=== PATIENT | male | born 1985 | race Caucasian/White ===

== ENCOUNTER 2025-01-24 02:50 | Emergency (ER) | payer BC, SELFPAY ==
--- NOTE | ~2025-01-24 | CT_ITS ---
EXAMINATION: CT abdomen pelvis wo con DATE: 01/24/2025 03:53 INDICATION: Right flank pain. TECHNIQUE: Computed tomography (CT) of the abdomen and pelvis was performed without intravenous contrast. The dose-length product was 622.67 mGy-cm. COMPARISON: None. FINDINGS: Lung bases are clear. Liver spleen, adrenal glands, pancreas and gallbladder are unremarkable. There is a 4.1 cm left renal cyst. Mild right-sided hydronephrosis and mild right-sided hydroureter secondary to a 6 mm calcification in the distal right ureter about the right ureterovesicular junction. There is a 5 mm nonobstructing right renal stone. Abdominal aorta is not aneurysmal. No bladder calculi. Prostate gland is partially calcified. Moderate amount of stool. No CT evidence for colitis acute appendicitis. Mild multilevel degenerative change in the visualized spine. IMPRESSION: 1. Mild right-sided hydronephrosis and mild right-sided hydroureter secondary to a 6 mm calcification in the distal right ureter about the right ureter junction. 2. Small nonobstructing right renal stone. Reviewed, dictated and finalized at location Q. IMPRESSION: 1. Mild right-sided hydronephrosis and mild right-sided hydroureter secondary t o a 6 mm calcification in the distal right ureter about the right ureter juncti on. 2. Small nonobstructing right renal stone.
--- OUTSIDE RECORDS SUMMARY | 2025-01-24 02:52 | XMS_ITS | Clinical Summary ---
Author Organization [facility] Address [address] [place] [address] Care Team Providers Care Coiler Name Role Phone None, Provider MD Primary Care Provider Unavaila ble Allergies No known active allergies Medications azithromycin (ZITHROMAX) 250 MG tabletIndicatio ns:Sore throat Take 2 tablets by mouth on day one then 1 daily for four days. 6 tablet 08/04/2023 Active Active Problems No known active problems Social History Tobacco Use Types Packs/Day Years Used Date Smoking Tobacco: Never Smokeless Tobacco: Never Tobacco Cessation:Counseling Given: Not Answered Alcohol Use Standard Drinks/Week Comments Yes 6.7 (1 standard drink = 0.6 oz p ure alcohol) PHQ-2 Answer Date Recorded Patient Health Questionnaire-2 Score 0 08/04/2023 Sex and Gender Information Value Date Recorded Sex Assigned at Not on file Legal Sex Male 4:46 PM CDT Gender Identity Not on file Sexual Orientation Not on file Last Filed Vital Signs Vital Sign Reading Time Taken Comments Blood Pressure 126/82 08/04/2023 7:07 AM CIGAR MAKER Pulse 90 08/04/2023 7:07 AM CIGAR MAKER Temperature 36.6 C (97.9 F) 08/04/2023 7:07 AM CIGAR MAKER Respiratory Rate 16 08/04/2023 7:07 AM CIGAR MAKER Oxygen Saturation 98% 08/04/2023 7:07 AM CIGAR MAKER Inhaled Oxygen Concentration - - Weight 110.7 kg (244 lb) 08/04/2023 7:07 AM CIGAR MAKER Height 180.3 cm (5' 11) 08/04/2023 7:07 AM CIGAR MAKER Body Mass Index 34.03 08/04/2023 7:07 AM CIGAR MAKER Plan of Treatment Health Maintenance Due Date Last Done Comments Annual Physical 1989 Hepatitis C 2004 DTaP, Tdap and Td Vaccines ( 1 - Tdap) 2005 Hepatitis B Vaccines (1 of 3 - 19+ 3-dose series) 2005 HPV Vaccines (1 - 3-dose SCD M series) 2013 COVID-19 Vaccine (2023-2 5 season) 2024 PHQ-2 (Physician [place]) 06/02/2024 08/04/2023 Meningococcal B Vaccine Aged Out No l onger eligible based on patient's age to complete this topic Meningococcal Vaccine Aged Out No moe andrey eligible based on patient's age to complete this topic Pneumococcal Vaccine: Pediat rics (0 to 5 Years) and At-Risk Patients (6 to 49 Years) Aged Out No longer eligi ble based on patient's age to complete this topic RSV Immunizations Under 20 Months Aged Out No longer eligible based on patient's age to complete this topic Insurance Care Teams Coiler Relationship Specialty Start Date End Date None, Provider, MD PCP - General UNKNOWN PHYSICIAN SPECIALTY 08/04/23
[2025-01-24 02:54] VITALS: BP 152/106; PULSE 92; RESP 20; TEMP 36.8; O2SAT 100
[2025-01-24] MEDS: SODIUM CHLORIDE 0.9% IV 1,000 ML 999 ML IV CONT (03:16)
[2025-01-24] MEDS: KETOROLAC 15 MG/ML VIAL (*BKC) IV PUSH (03:16)
--- NOTE | 2025-01-24 03:17 | ED_ITS ---
HPI - Back Pain/Injury General Chief Complaint: Back Pain/Injury Stated Complaint: back pain Time Seen by Provider: 01/24/25 02:54 History of Present Illness HPI Narrative: Patient is a 39-year-old male who presents to the emergency department this evening complaining of right-sided flank pain radiating to his right lower quadrant. States that it pain started approximately 2 hours ago. States that he has urgency to urinate but feels as though he can not empty his bladder. Denies any history of kidney stones. Denies any dysuria or hematuria. No additional symptoms or concerns at this time. Related Data Allergies Allergy/AdvReac Type Severity Reaction Status Date / Time No Known Allergies Allergy Verified 10/11/24 11:13 Review of Systems 2 Review of Systems: All systems are reviewed and are negative unless stated otherwise in the HPI. ON LICENSE OF [facility] Family History Family History Grandparent Diabetes mellitus Grandparent Diabetes mellitus Social History Social History Smoking status: Never smoker Do You Feel Safe in your Home?: Yes Lack of Transportation: No Lack of Food: Never True Current Housing: I Have Housing Concerned About Future Housing: No Difficulty Paying Gas/Electric Bills: No Difficulty Paying for Meds: No Currently Unemployed: No Difficulty w/ Childcare or Family Care: No Living arrangements: with family Gender identity (if verbalized by the patient): Male Exam 2 Narrative: General: Alert, awake, afebrile, in no acute distress. HEENT: PERRL, no rhinorrhea, no post nasal drip, oropharynx clear. Neck: Trachea midline, no JVD, no lymphadenopathy. Cardiovascular: Regular rate and rhythm, no murmurs, rubs or gallops, no peripheral edema. Respiratory: Clear to auscultation bilaterally, no tachypnea, no wheezing, no rhonchi, no rubs, no respiratory distress. Abdomen: Soft, nontender, nondistended, no rebound, no guarding, no peritoneal signs. Musculoskeletal: No joint swelling or deformity, normal muscle tone. Skin: No rashes or petechia, no signs of infection. Psychiatric: Alert and oriented, normal behavior and judgment for situation. Neurological: Alert and oriented to person, place, and time. Follows all commands. No focal deficits, speech is clear and fluent. Course Vital Signs Vital signs: Vital Signs Temperature 98.2 F 01/24/25 02:54 Pulse Rate 92 01/24/25 02:54 Respiratory Rate 20 01/24/25 02:54 Blood Pressure 152/106 H 01/24/25 02:54 Pulse Oximetry 100 01/24/25 02:54 Oxygen Delivery Room Air 01/24/25 02:54 Temperature 98.2 F 01/24/25 02:54 Pulse Rate 92 01/24/25 02:54 Respiratory Rate 20 01/24/25 02:54 Blood Pressure 152/106 H 01/24/25 02:54 Pulse Oximetry 100 01/24/25 02:54 Oxygen Delivery Room Air 01/24/25 02:54 MDM - Back Pain/Injury MDM Narrative Medical decision making narrative: The patient was evaluated by myself in the emergency department. History is obtained from patient who is an independent historian and physical exam was performed. External medical records were reviewed at this time. IV was established and pertinent tests were ordered. Patient was administered 1 L IV fluid bolus with normal saline, 4 mg IV Zofran and an oral [place]. Laboratory results obtained revealing no acute process. Urinalysis revealed hematuria otherwise unremarkable. Imaging studies obtained included CT abdomen pelvis without IV contrast which was independently interpreted by me revealing 5 mm mildly obstructing distal right ureteral stone, which is pending final radiology interpretation. Differential diagnosis considerations include kidney stone, dehydration, UTI, pyelonephritis. Comorbidities impacting this visit include none. I have evaluated and discussed social determinants of health with the patient that could potentially impact subsequent diagnosis and treatment plans. On repeat assessment of the patient, reevaluation revealed that the patient is doing well and is in no acute distress. Patient symptoms have improved since he arrived to our emergency department. Repeat vital signs were all reviewed and noted to be stable. Differential diagnosis and treatment plan were discussed with the patient at bedside. Patient agrees with discussion and after shared medical decision making agrees with discharge. All questions were answered to the patient's satisfaction. Patient will follow up with Urologys in 3-5 days. Scripts for Flomax, ibuprofen, Zofran and [place] were sent to patient's pharmacy to take as prescribed to help pass his kidney stone. He was provided with a urine strainer. Patient was provided with strict return precautions and instructed to return to the emergency department if any new or worsening symptoms develop. The patient was discharged in stable condition. Lab Data 01/24/25 03:15 01/24/25 03:15 Labs: Lab Results 01/24/25 01/24/25 Range/Units 03:15 03:53 WBC 9.4 (4.5-10.0) K/mm3 RBC 4.77 (4.6-6.20) M/mm3 Hgb 14.5 (14.0-18.0) g/dL Hct 43.6 (42.0-52.0) % MCV 91.4 (80-100) fl MCH 30.4 (26-34) pg MCHC 33.3 (32-36) g/dl RDW 12.5 (11.5-14.5) % Plt Count 271 (150-375) k/mm3 MPV 9.0 (7.4-10.4) fl Immature Gran % (Auto) 0.3 (0-0.5) % Neut % (Auto) 47.3 (45.5-73.1) % Lymph % (Auto) 34.3 (18.3-44.2) % [place] % (Auto) 9.9 H (2.6-8.5) % Eos % (Auto) 7.7 H (0-4.4) % Baso % (Auto) 0.5 (0.2-1.2) % Lymph # (Auto) 3.23 H (0.9-3.2) K/mm3 [place] # (Auto) 0.9 H (0.1-0.6) K/mm3 Eos # (Auto) 0.7 H (0-0.3) K/mm3 Baso # (Auto) 0.1 (0.0-0.1) K/mm3 Abs Immat Gran (auto) 0.03 (0.00-0.031) K/mm3 Absolute Neuts (auto) 4.5 (1.3-6.7) K/mm3 Absolute Nucleated RBC 0.000 (0.0-0.012) K/mm3 Nucleated RBC % 0.0 (0.0-0.2) % Sodium 136 L (137-145) mmol/L Potassium 3.9 (3.4-5.0) mmol/L Chloride 101 (98-107) mmol/L Carbon Dioxide 29 (22-30) mmol/L Anion Gap 6 (4-12) mmol/L BUN 14 (9-20) mg/dL Creatinine 0.84 (0.7-1.3) mg/dL Estim Creat Clear Calc 131 ml/min Estimated GFR > 60 (59 - ) Glucose 149 H (65-110) mg/dL Calcium 9.4 (8.4-10.2) mg/dL Magnesium 2.2 (1.6-2.3) mg/dL Total Bilirubin 0.4 (0.2-1.3) mg/dL AST 35 (17-59) U/L ALT 26 (6-50) U/L Alkaline Phosphatase 73 (38-126) U/L Total Protein 7.4 (6.3-8.2) g/dL Albumin 4.6 (3.5-5.1) g/dL Lipase 51 (23-300) U/L Urine Color Yellow (Yellow) Urine Appearance Clear (Clear) Urine pH 5.5 (5.0-9.0) Ur Specific [place] 1.030 (1.001-1.035) Urine Protein Negative (Negative) mg/dL Urine Glucose (UA) Negative (Negative) mg/dL Urine Ketones Trace H (Negative) mg/dL Ur Blood (Man) 3+ H (Negative) Urine Nitrate Negative (Negative) Urine Bilirubin Negative (Negative) Urine Urobilinogen 0.2 (<2.0) mg/dL Leukocyte Esterase Rfl Negative (Negative) VIGNESH/UL Urine RBC 51-100 H (0-2) /hpf Urine WBC 0-5 (0-3) /hpf Ur Squamous Epith Cells None seen (Few) /hpf Urine Bacteria None seen /hpf Urine Casts 0-2 Discharge Plan Discharge Clinical Impression: Kidney stone, Right flank pain Patient Disposition: Home Condition: Improved Instructions: Antibiotic Form, Kidney Stones (ED) Additional Instructions: Please follow-up with the urologist your provided with within the next 3-5 days. Return to ED if any new or worsening symptoms develop. Take the medications your prescribed today as instructed to help passed 2 kidney stone. Patient Language: Afghan Prescriptions: New hydrocodone-acetaminophen 5-325 mg tablet 1 tablet PO Q8H PRN (Reason: pain) Qty: 10 0RF ondansetron 4 mg tablet,disintegrating 4 mg PO Q8H PRN (Reason: nausea and vomiting) Qty: 14 0RF tamsulosin [Flomax] 0.4 mg capsule 0.4 mg PO DAILY Qty: 14 0RF ibuprofen 400 mg tablet 400 mg PO TID PRN (Reason: pain) Qty: 20 0RF Follow-up/Referrals: Joe Pena MD [Physician, Urology] - 3 Days Nadir Spence MD [Primary Care Provider, Family Practice] Time of Disposition: 04:24
[2025-01-24 03:21] LABS: Hematocrit 43.6 % (42.0-52.0); Hemoglobin 14.5 g/dL (14.0-18.0); Immature Granulocyte Percent A 0.3 % (0-0.5); Lymphocytes Absolute Auto 3.23 K/mm3 (0.9-3.2); Mean Corpuscular HGB Conc 33.3 g/dl (32-36); Mean Corpuscular Hemoglobin 30.4 pg (26-34); Mean Corpuscular Volume 91.4 fl (80-100); Nucleated Red Blood Cells Absolute Auto 0.000 K/mm3 (0.0-0.012); Nucleated Red Blood Cells Perc 0.0 % (0.0-0.2); Platelet Count Result 271 k/mm3 (150-375); Red Blood Count 4.77 M/mm3 (4.6-6.20); White Blood Count 9.4 K/mm3 (4.5-10.0)
[2025-01-24 03:36] LABS: Alanine Aminotransferase 26 U/L (6-50); Albumin Level 4.6 g/dL (3.5-5.1); Alkaline Phosphatase 73 U/L (38-126); Anion Gap 6 mmol/L (4-12); Aspartate Amino Transferase 35 U/L (17-59); Bilirubin,Total 0.4 mg/dL (0.2-1.3); Blood Urea Nitrogen 14 mg/dL (9-20); Calcium 9.4 mg/dL (8.4-10.2); Carbon Dioxide 29 mmol/L (22-30); Chloride 101 mmol/L (98-107); Estimated CRCL calculation 131 ml/min; Estimated Glomerular Filt Rate > 60; Glucose 149 mg/dL (65-110); Lipase 51 U/L (23-300); Magnesium 2.2 mg/dL (1.6-2.3); Potassium 3.9 mmol/L (3.4-5.0); Sodium 136 mmol/L (137-145); Total Protein 7.4 g/dL (6.3-8.2)
[2025-01-24] MEDS: ONDANSETRON INJ 4 MG/2 ML VIAL IV PUSH (03:42)
[2025-01-24 04:05] LABS: Add Urine Microscopic? YES; Appearance Urine Clear (Clear); Glucose Urine UA Negative (Negative); Leukocyte Esterase Ur Negative LEU/UL (Negative); Nitrate Urine Negative (Negative); Non Pathogenic Casts 0-2; Specific Grav Ur 1.030 (1.001-1.035)
[2025-01-24] MEDS: HYDROcodone/acetaminophen (*CRX) 5-325 MG TABLET 1 TAB PO (04:28)
[2025-01-24] MEDS: TAMSULOSIN HCL 0.4 MG CAPSULE PO (04:28)
[2025-01-24 05:08] VITALS: BP 140/98; PULSE 86; RESP 18; O2SAT 99
== END 2025-01-24 04:35 | disposition home or self-care (01) ==
PROVIDERS: Emergency Provider Emergency Medicine; PCP Family Medicine
DX: N13.2 Hydronephrosis with renal and ureteral calculous obstruction (principal)
CPT/HCPCS: 36415; 74176; 80053; 81001; 83690; 83735; 85025; 96361; 96374; 96375; 99284; A9270; J1885; J2405; J7030

== ENCOUNTER 2025-01-27 06:57 | Outpatient (CLI) | payer BC, SELFPAY ==
--- NOTE | ~2025-01-27 | XR_ITS ---
XR abdomen/kub 1V 01/27/2025 07:26 Indication: Kidney stone Procedure: KUB Comparison: No prior studies for comparison. Findings: There is a punctate right renal stone. Bowel gas pattern nonobstructive with moderate colonic fecal loading. No stones identified in the expected course of ureters. No acute osseous abnormality. Impression: 1: Right nephrolithiasis. Reviewed, dictated and finalized at location O. Impression: 1: Right nephrolithiasis.
== END 2025-01-27 06:58 | disposition home or self-care (01) ==
LOC: MICIMG 06:58
PROVIDERS: PCP Family Medicine; Visit Provider Urology
DX: N20.0 Calculus of kidney (principal)
CPT/HCPCS: 74018

== ENCOUNTER 2025-01-27 10:23 | Day surgery (SDC) | payer BC, SELFPAY ==
[2025-01-27] VITALS (7 sets, daily range): BP systolic 115–157; BP diastolic 68–95; PULSE 72–89; RESP 16–20; TEMP 36.4–36.9; O2SAT 98–100
--- NOTE | ~2025-01-27 | XR_ITS ---
EXAMINATION: XR fluoroscopy no charge DATE: 01/27/2025 14:09 INDICATION: Nephrolithiasis with right ureteral stone TECHNIQUE: 2 fluoroscopic images of the abdomen and pelvis were obtained during procedure performed by Dr. Ludwig. Radiologist was not present for the imaging or procedure. The amount of fluoroscopy time used during this procedure was 0.3 minutes. Total DAP was 0.487 mGym^2. COMPARISON: None. FINDINGS: Image demonstrates a wire advanced into the right ureter. No correlate identified for the small stone previously seen at the right ureterovesicular junction. IMPRESSION: 1. Small stone previously seen at the right ureterovesicular junction is not visualized which could be due to small size or interval passage or extraction. See procedure note for further detail. Reviewed, dictated and finalized at location A. IMPRESSION: 1. Small stone previously seen at the right ureterovesicular junction is not vi sualized which could be due to small size or interval passage or extraction. Se e procedure note for further detail.
--- OUTSIDE RECORDS SUMMARY | 2025-01-27 10:28 | XMS_ITS | Clinical Summary ---
Author Organization [facility] Address [address] [address] Care Team Providers Care Board Liner Operator Name Role Phone Unknown, Notinfile Primary Care Provider Unavail able Allergies No known active allergies Medications No known medications Active Problems Problem Noted Date Diagnosed Date Adhesive capsulitis of left shoulder 06/09/2024 Surgical History Surgery Date Site/Laterality Comments FLUORO GUIDED INJECTION SHOULDER LEFT 06/10/2024 Lef t Social History Tobacco Use Types Packs/Day Years Used Date Smoking Tobacco: Never Passive Smoke Exposure: Never Smokeless Tobacco: Never Tobacco Cessation:Counseling Given: Not Answered Sex and Gender Information Value Date Recorded Sex Assigned at Not on file Legal Sex Male 12:59 PM READING INSTRUCTOR Gender Identity Not on file Sexual Orientation Not on file Obstetrics History Last Filed Vital Signs Vital Sign Reading Time Taken Comments Blood Pressure 133/98 06/10/2024 10:52 AM READING INSTRUCTOR Pulse 84 06/10/2024 10:52 AM READING INSTRUCTOR Temperature - - Respiratory Rate 20 06/10/2024 10:52 AM READING INSTRUCTOR Oxygen Saturation - - Inhaled Oxygen Concentration - - Weight 114.3 kg (252 lb) 06/09/2024 9:58 AM READING INSTRUCTOR Height 178.5 cm (5' 10.28) 06/09/2024 9:[address] Body Mass Index 35.87 06/09/2024 9:58 AM READING INSTRUCTOR Plan of Treatment Health Maintenance Due Date Last Done Comments Depression Screening 1986 Hepatitis C Screening 1986 DTaP/Tdap/Td Vaccine (1 - Tdap) 1997 Varicella Vaccines (1 of 2 - 13+ 2-dose series) 09/09/1999 Hepatitis B Screening 2004 Regular Well Visit/Exam 18-64 2004 HPV Vaccines (1 - 3-dose SCD M series) 2013 Influenza Vaccine (#1) 2025 03/23/2019 Pneumococcal vaccine <65 Aged Out No longer eligible based on patient's age to complete this topic [place] Care Teams Board Liner Operator Relationship Specialty Start Date End Date Unknown, Notinfile PCP - General 06/03/24
--- OUTSIDE RECORDS SUMMARY | 2025-01-27 10:28 | XMS_ITS | Clinical Summary ---
Author Organization [facility] Address [address] [place] [address] Care Team Providers Care Radiation Control Technician Name Role Phone None, Provider MD Primary [...] Comments Blood Pressure 126/82 08/04/2023 7:07 AM FORESTER AIDE Pulse 90 08/04/2023 7:07 AM FORESTER AIDE Temperature 36.6 C (97.9 F) 08/04/2023 7:07 AM FORESTER AIDE Respiratory Rate 16 08/04/2023 7:07 AM FORESTER AIDE Oxygen Saturation 98% 08/04/2023 7:07 AM FORESTER AIDE Inhaled Oxygen Concentration - - Weight 110.7 kg (244 lb) 08/04/2023 7:07 AM FORESTER AIDE Height 180.3 cm (5' 11) 08/04/2023 7:07 AM FORESTER AIDE Body Mass Index 34.03 08/04/2023 7:07 AM FORESTER AIDE Plan of Treatment Health Maintenance Due Date Last Done Comments Annual Physical 1989 Hepatitis C 2004 DTaP, Tdap and Td Vaccines ( 1 - Tdap) 2005 Hepatitis B Vaccines (1 of 3 - 19+ 3-dose series) 2005 HPV Vaccines (1 - 3-dose SCD M series) 2013 COVID-19 Vaccine (2023-2 5 season) 2024 PHQ-2 (Physician [place]) 06/02/2024 08/04/2023 Meningococcal B Vaccine Aged Out [...] to complete this topic Insurance Care Teams Radiation Control Technician Relationship Specialty Start Date End Date None, Provider, MD PCP - General UNKNOWN PHYSICIAN SPECIALTY 08/04/23
--- NOTE | 2025-01-27 11:20 | ED.GENADULT ---
HPI - General Adult General Chief complaint: Back Pain/Injury Stated complaint: R flank pain Time Seen by Provider: 01/27/25 10:53 History of Present Illness HPI narrative: 39-year-old male present to the emergency department for evaluation for worsening flank pain. Patient was diagnosed with a kidney stone last week and was scheduled to have outpatient follow-up with Dr. Ludwig. Patient had worsening symptoms today so he present to the emergency department for evaluation. Urology is where the patient and is anticipating on taking the patient to the or today. Patient reports he did have water at approximate 1045 and did have yogurt this morning at approximately 6:30 a.m.. Patient is currently now it p.o. Related Data Allergies Allergy/AdvReac Type Severity Reaction Status Date / Time No Known Allergies Allergy Verified 01/27/25 13:23 Review of Systems Review of Systems: All systems reviewed & are unremarkable except as noted in HPI and below PMFSH Family History Family History Grandparent Diabetes mellitus Grandparent Diabetes mellitus Social History Social History Smoking status: Never smoker Do You Feel Safe in your Home?: Yes Lack of Transportation: No Lack of Food: Never True Current Housing: I Have Housing Concerned About Future Housing: No Difficulty Paying Gas/Electric Bills: No Difficulty Paying for Meds: No Currently Unemployed: No Difficulty w/ Childcare or Family Care: No Living arrangements: with family Gender identity (if verbalized by the patient): Male Exam Narrative: APPEARANCE: Uncomfortable appearing HEAD: normocephalic, atraumatic. EYES: PERRLA/EOMI, conjunctivae clear. NOSE: Normal no drainage EARS:TMS clear with good light reflex. THROAT: Pharynx clear, no exudate. NECK: Supple. No adenopathy, no masses. RESPIRATORY: Airway patent, respirations nonlabored. Clear to auscultation bilaterally, no rales, rhonchi, wheezing. CARDIOVASCULAR: Regular rate and rhythm without murmurs rubs or gallops. ABDOMINAL: Soft, nontender, nondistended, normal bowel sounds MUSCULOSKELETAL: Moves all extremities. Strength/ROM intact, No edema, No calf tenderness. NEURO: Alert. Cranial nerves II through XII intact. Good gait. Good coordination SKIN: Warm, dry. Normal Color Course Vital Signs Vital signs: Vital Signs Temperature 97.5 F L 01/27/25 10:26 Pulse Rate 85 01/27/25 10:26 Respiratory Rate 16 01/27/25 10:26 Blood Pressure 157/89 H 01/27/25 10:26 Pulse Oximetry 100 01/27/25 10:26 Oxygen Delivery Room Air 01/27/25 10:26 Temperature 97.6 F 01/27/25 14:06 Pulse Rate 72 01/27/25 15:20 Respiratory Rate 16 01/27/25 15:20 Blood Pressure 125/79 01/27/25 15:20 Pulse Oximetry 100 01/27/25 14:35 Oxygen Delivery Room Air 01/27/25 15:20 Oxygen Flow Rate 4 01/27/25 14:20 Medical Decision Making MDM Narrative Medical decision making narrative: 39-year-old male present to the emergency department for evaluation for worsening flank pain. Urology and the OR is aware of the patient having worsening symptoms. Patient will be taken to the your today for dissipated stent placement. All questions concerns were addressed. Differential Diagnosis Differential Diagnosis: UTI, ureteral calculi Vital Signs Vital Signs: Vital Signs Temperature 97.5 F L 01/27/25 10:26 Pulse Rate 85 01/27/25 10:26 Respiratory Rate 16 01/27/25 10:26 Blood Pressure 157/89 H 01/27/25 10:26 Pulse Oximetry 100 01/27/25 10:26 Oxygen Delivery Room Air 01/27/25 10:26 Temperature 97.6 F 01/27/25 14:06 Pulse Rate 72 01/27/25 15:20 Respiratory Rate 16 01/27/25 15:20 Blood Pressure 125/79 01/27/25 15:20 Pulse Oximetry 100 01/27/25 14:35 Oxygen Delivery Room Air 01/27/25 15:20 Oxygen Flow Rate 4 01/27/25 14:20 Lab Data Lab results reviewed: Yes I reviewed the patient's lab results. Labs: Lab Results 01/27/25 Range/Units 12:13 Urine Color Yellow (Yellow) Urine Appearance Clear (Clear) Urine pH 5.5 (5.0-9.0) Ur Specific [place] 1.023 (1.001-1.035) Urine Protein Negative (Negative) mg/dL Urine Glucose (UA) Negative (Negative) mg/dL Urine Ketones Negative (Negative) mg/dL Ur Blood (Man) 2+ H (Negative) Urine Nitrate Negative (Negative) Urine Bilirubin Negative (Negative) Urine Urobilinogen 0.2 (<2.0) mg/dL Leukocyte Esterase Rfl Negative (Negative) VIGNESH/UL Urine RBC 3-5 H (0-2) /hpf Urine WBC 0-5 (0-3) /hpf Ur Squamous Epith Cells None seen (Few) /hpf Urine Bacteria None seen /hpf Urine Casts 0-2 Discharge Plan Discharge Clinical Impression: Right ureteral stone Patient Disposition: Still a Patient Condition: Serious
--- OUTSIDE RECORDS SUMMARY | 2025-01-27 11:22 | XMS_ITS | Clinical Summary ---
Author Organization [facility] Address [address] [address] Care Team Providers Care Power Plant Installer Name Role Phone Unknown, Notinfile Primary Care [...] on file Legal Sex Male 12:59 PM MANAGER SUPPORT SERVICES Gender Identity Not on file Sexual Orientation Not on file Obstetrics History Last Filed Vital Signs Vital Sign Reading Time Taken Comments Blood Pressure 133/98 06/10/2024 10:52 AM MANAGER SUPPORT SERVICES Pulse 84 06/10/2024 10:52 AM MANAGER SUPPORT SERVICES Temperature - - Respiratory Rate 20 06/10/2024 10:52 AM MANAGER SUPPORT SERVICES Oxygen Saturation - - Inhaled Oxygen Concentration - - Weight 114.3 kg (252 lb) 06/09/2024 9:58 AM MANAGER SUPPORT SERVICES Height 178.5 cm (5' 10.28) 06/09/2024 9:[address] Body Mass Index 35.87 06/09/2024 9:58 AM MANAGER SUPPORT SERVICES Plan of Treatment Health Maintenance Due Date [...] [place] Care Teams Power Plant Installer Relationship Specialty Start Date End Date Unknown, Notinfile PCP - General 06/03/24
--- OUTSIDE RECORDS SUMMARY | 2025-01-27 11:22 | XMS_ITS | Clinical Summary ---
Author Organization [facility] Address [address] [place] [address] Care Team Providers Care Binder Folder Operator Name Role Phone None, Provider MD Primary [...] Comments Blood Pressure 126/82 08/04/2023 7:07 AM IT DIRECTOR Pulse 90 08/04/2023 7:07 AM IT DIRECTOR Temperature 36.6 C (97.9 F) 08/04/2023 7:07 AM IT DIRECTOR Respiratory Rate 16 08/04/2023 7:07 AM IT DIRECTOR Oxygen Saturation 98% 08/04/2023 7:07 AM IT DIRECTOR Inhaled Oxygen Concentration - - Weight 110.7 kg (244 lb) 08/04/2023 7:07 AM IT DIRECTOR Height 180.3 cm (5' 11) 08/04/2023 7:07 AM IT DIRECTOR Body Mass Index 34.03 08/04/2023 7:07 AM IT DIRECTOR Plan of Treatment Health Maintenance Due Date Last Done Comments Annual Physical 1989 Hepatitis C 2004 DTaP, Tdap and Td Vaccines ( 1 - Tdap) 2005 Hepatitis B Vaccines (1 of 3 - 19+ 3-dose series) 2005 HPV Vaccines (1 - 3-dose SCD M series) 2013 COVID-19 Vaccine (2023-2 5 season) 2024 PHQ-2 (Physician [place]) 06/02/2024 08/04/2023 Meningococcal B Vaccine Aged Out [...] to complete this topic Insurance Care Teams Binder Folder Operator Relationship Specialty Start Date End Date None, Provider, MD PCP - General UNKNOWN PHYSICIAN SPECIALTY 08/04/23
[2025-01-27] MEDS: LACTATED RINGERS 1,000 ML 999 ML IV CONT (11:24)
[2025-01-27] MEDS: HYDROmorphone HCL INJ (*CRX) 1 MG/ML SYR IV PUSH (11:25)
[2025-01-27] MEDS: ONDANSETRON INJ 4 MG/2 ML VIAL IV PUSH (11:26)
--- OUTSIDE RECORDS SUMMARY | 2025-01-27 11:50 | XMS_ITS | Clinical Summary ---
Author Organization [facility] Address [address] [place] [address] Care Team Providers Care Instructional Manager Name Role Phone None, Provider MD Primary [...] Comments Blood Pressure 126/82 08/04/2023 7:07 AM TREE PRUNER Pulse 90 08/04/2023 7:07 AM TREE PRUNER Temperature 36.6 C (97.9 F) 08/04/2023 7:07 AM TREE PRUNER Respiratory Rate 16 08/04/2023 7:07 AM TREE PRUNER Oxygen Saturation 98% 08/04/2023 7:07 AM TREE PRUNER Inhaled Oxygen Concentration - - Weight 110.7 kg (244 lb) 08/04/2023 7:07 AM TREE PRUNER Height 180.3 cm (5' 11) 08/04/2023 7:07 AM TREE PRUNER Body Mass Index 34.03 08/04/2023 7:07 AM TREE PRUNER Plan of Treatment Health Maintenance Due Date Last Done Comments Annual Physical 1989 Hepatitis C 2004 DTaP, Tdap and Td Vaccines ( 1 - Tdap) 2005 Hepatitis B Vaccines (1 of 3 - 19+ 3-dose series) 2005 HPV Vaccines (1 - 3-dose SCD M series) 2013 COVID-19 Vaccine (2023-2 5 season) 2024 PHQ-2 (Physician [place]) 06/02/2024 08/04/2023 Meningococcal B Vaccine Aged Out [...] to complete this topic Insurance Care Teams Instructional Manager Relationship Specialty Start Date End Date None, Provider, MD PCP - General UNKNOWN PHYSICIAN SPECIALTY 08/04/23
[2025-01-27 12:21] LABS: Add Urine Microscopic? YES; Appearance Urine Clear (Clear); Glucose Urine UA Negative (Negative); Leukocyte Esterase Ur Negative LEU/UL (Negative); Nitrate Urine Negative (Negative); Non Pathogenic Casts 0-2; Specific Grav Ur 1.023 (1.001-1.035)
[2025-01-27] MEDS: LACTATED RINGERS 1,000 ML 30 ML IV CONT (12:30)
--- NOTE | 2025-01-27 12:38 | WPDANESEPPF ---
Anes - Initial Pre Proc Eval Procedure: Operation Date: 01/27/25 13:45 Proposed Procedures p Cystoscopy, Right Ureteroscopy, Possible Right Retrograde Pyelogram, Possible Right Stone Extraction, Possible Right Stent Placement, Possible Holmium Laser - Josep Ludwig MD Date/Time: 01/27/25 12:38 Surgeon: Josep Ludwig MD Pre Op Diagnosis: R flank pain Patient Data Age: 39 Gender: M Height: 1.8 m Weight: 110.6 kg Last Vital Signs Temp 36.4 C L 01/27/25 10:26 Pulse 85 01/27/25 10:26 Resp 16 01/27/25 10:26 BP 157/89 H 01/27/25 10:26 Pulse Ox 100 01/27/25 10:26 O2 Del Method Room Air 01/27/25 10:26 Allergies Allergy/AdvReac Type Severity Reaction Status Date / Time No Known Allergies Allergy Verified 01/27/25 10:29 Home Medications ?Medication ?Instructions ?Recorded ?Confirmed ?Type hydrocodone 5 mg-acetaminophen 325 1 tablet PO Q8H PRN pain #10 tabs 01/24/25 Rx mg tablet ibuprofen 400 mg tablet 400 mg PO TID PRN pain #20 tabs 01/24/25 Rx ondansetron 4 mg disintegrating 4 mg PO Q8H PRN nausea and 01/24/25 Rx tablet vomiting #14 tabs tamsulosin 0.4 mg capsule (Flomax) 0.4 mg PO DAILY #14 caps 01/24/25 Rx Laboratory Tests 01/27/25 12:13 Urine Color Yellow (Yellow) Urine Appearance Clear (Clear) Urine pH 5.5 (5.0-9.0) Ur Specific [place] 1.023 (1.001-1.035) Urine Protein Negative mg/dL (Negative) Urine Glucose (UA) Negative mg/dL (Negative) Urine Ketones Negative mg/dL (Negative) Ur Blood (Man) 2+ H (Negative) Urine Nitrate Negative (Negative) Urine Bilirubin Negative (Negative) Urine Urobilinogen 0.2 mg/dL (<2.0) Leukocyte Esterase Rfl Negative VIGNESH/UL (Negative) Urine RBC 3-5 H /hpf (0-2) Urine WBC 0-5 /hpf (0-3) Ur Squamous Epith Cells None seen /hpf (Few) Urine Bacteria None seen /hpf Urine Casts 0-2 Patient hx anesthesia problems: none Family hx anesthesia problems: none Results Review: All pre-operative results and documents have been reviewed as part of the pre-operative evaluation. [facility] Family History Family History Grandparent Diabetes mellitus Grandparent Diabetes mellitus Social History Social History Smoking status: Never smoker Do You Feel Safe in your Home?: Yes Lack of Transportation: No Lack of Food: Never True Current Housing: I Have Housing Concerned About Future Housing: No Difficulty Paying Gas/Electric Bills: No Difficulty Paying for Meds: No Currently Unemployed: No Difficulty w/ Childcare or Family Care: No Living arrangements: with family Gender identity (if verbalized by the patient): Male Anes - Eval Final PreProcedure Day of Procedure 01/27/25 12:38 Patient weight: obese Heart: regular rate and rhythm Lungs: clear to auscultation Airway: Mallampati scale class II Neurological: alert and oriented Last oral intake: >/= 8 hours ASA classification: III Emergent: no Anesthetic plan: proceed Anesthesia type and monitoring: general LMA and standard monitoring Results Review: All pre-operative results and documents have been reviewed as part of the pre-operative evaluation. Informed Consent: The patient's anesthetic plan and its attendant risks and benefits were discussed with the patient/family/POA. Questions were solicited and answers provided to the satisfaction of the patient/family/POA.
--- NOTE | 2025-01-27 13:27 | P.HP_ITS ---
History of Present Illness History of Present Illness Consent: Risks, benefits, and alternatives have been discussed and questions answered. Patient agrees to proceed with procedure. Chief complaint: R flank pain Narrative: Damion Andrea is a 39 year old male who was in my office just yesterday after having been in the ER 2 days prior. He has a 6 mm right distal ureteral stone, until this morning, it was not causing him terrible pain. Overnight however he developed pretty classic ureteral colic without fevers chills or gross hematuria. Review of Systems Review of Systems: All systems reviewed & are unremarkable except as noted in HPI and below PMFSH Family History Family History Grandparent Diabetes mellitus Grandparent Diabetes mellitus Social History Social History Smoking status: Never smoker Do You Feel Safe in your Home?: Yes Lack of Transportation: No Lack of Food: Never True Current Housing: I Have Housing Concerned About Future Housing: No Difficulty Paying Gas/Electric Bills: No Difficulty Paying for Meds: No Currently Unemployed: No Difficulty w/ Childcare or Family Care: No Living arrangements: with family Gender identity (if verbalized by the patient): Male Meds Home Medications and Allergies Home Medications ?Medication ?Instructions ?Recorded ?Confirmed ?Type hydrocodone 5 mg-acetaminophen 325 1 tablet PO Q8H PRN pain #10 tabs 01/24/25 01/27/25 Rx mg tablet ibuprofen 400 mg tablet 400 mg PO TID PRN pain #20 t abs 01/24/25 01/27/25 Rx ondansetron 4 mg disintegrating 4 mg PO Q8H PRN nausea and 01/24/25 Rx tablet vomiting #14 tabs tamsulosin 0.4 mg capsule (Flomax) 0.4 mg PO DAILY #14 caps 01/24/25 Rx Allergies Allergy/AdvReac Type Severity Reaction Status Date / Time No Known Allergies Allergy Verified 01/27/25 13:23 Vital Signs Vital Signs - 24 hr 01/27/25 10:26 01/27/25 12:30 Temperature 97.5 F L 98.5 F Pulse Rate 85 85 Respiratory Rate 16 20 Blood Pressure 157/89 H 138/95 H Pulse Oximetry 100 100 Oxygen Delivery Room Air Room Air Exam Const: General: no acute distress Resp: Effort & Inspection: normal respiratory effort GI: Inspection: non-distended GI Palp: No abdominal tenderness and No Guarding due to palpation present (GI) Auscultation: normal bowel sounds Assessment and Plan Assessment and plan (1) Right ureteral stone: Code(s): N20.1 - Calculus of ureter Status: Acute Assessment and Plan: * Cystoscopy, right ureteroscopy with stone extraction, possible laser lithotripsy, retrograde pyelogram and stent placement
--- NOTE | 2025-01-27 13:28 | WPDHPUPDATE1 ---
History and Physical Update Update Date/Time: 01/27/25 13:28 History and Physical has been reviewed, including an updated exam of the patient. There are NO changes in the patient's condition. Risks, benefits, and alternatives have been discussed and questions answered. Patient agrees to proceed with procedure.
[2025-01-27] MEDS: ceFAZolin 2 GM in SODIUM CHLORIDE 0.9% IV 50 ML 100 ML IVPB (13:32)
[2025-01-27] MEDS: LIDOCAINE 2% GEL UROJET 10 ML PKG MUCOUS MEM (13:48)
--- NOTE | 2025-01-27 13:57 | S_PTH ---
PATIENT: Damion Andrea LOC: [facility] U#:[id number] AGE/SX: 39/M ROOM: RE01/27/[address]: Josep Ludwig MD : 1985 BED: DIS: 01/27/2025 SPEC #: [id number] RECD: 01/27/25 14:41 STATUS: TIMO REQ #: [id number] OSCAR: 01/27/25 13:[address]: Josep Ludwig DEPT: [facility] Surgical RECD BY: Alessia Jaimes ENTERED: 01/27/25 14:41 SP TYPE: Surgical OTHR DR: Marco Hector, MD Nadir Spence MD Tissues: A - Stone Procedures: Gross Exam Level 1 Crystalline Analysis
[2025-01-27] MEDS: KETOROLAC 30 MG/ML VIAL (*BKC) IV PUSH (14:01)
--- NOTE | 2025-01-27 14:20 | P.OP_ITS ---
Procedure Note - Detailed Date of Procedure 01/27/25 Pre-op Diagnosis Right ureteral stone Post-op Diagnosis Same Procedure Performed Cystoscopy, right ureteroscopy with stone extraction Surgeon Josep Ludwig MD Anesthesia General Description of Procedure The patient was brought to the operative suite where he is prepped and draped in a routine sterile fashion while in the dorsal lithotomy position after the uneventful induction of a general LMA anesthetic. A 19F rigid cystoscope was placed in the bladder. There are no urethral strictures. His prostatic urethra measures, approximately, 1.5cm with no median lobe enlargement. The bladder mucosa was endoscopically normal without hyperemia or neoplasm. There was a single, orthotopic ureteral orifice bilaterally. A 0.035 glidewire was advanced into the right renal pelvis under fluoroscopy. The distal ureter was dilated with an 8F/10F ureteral dilator. Ureteroscopy was undertaken with a short, tapered, semi-rigid ureteroscope and the stone was extracted with ease using a 1.9F Escape disposable stone basket. Due to the ease of this manipula tion I opted not to place a ureteral stent. The patient's bladder was emptied and was taken to the recovery room having tolerated this procedure well. Drains No Pathology Yes
--- NOTE | 2025-01-27 14:45 | SUR.PHASEII ---
Patient passed large blood clot while urinating. Dr. Ludwig aware of clot and size. No further orders or instructions at this time.
== END 2025-01-27 15:41 | disposition home or self-care (01) ==
LOC: ANHED 11:17 → ANHSURGERY 11:48
PROVIDERS: Emergency Provider Emergency Medicine; PCP Family Medicine; Visit Provider Urology
PROC: (CPT 52352; principal; 2025-01-27 13:45)
DX: N20.1 Calculus of ureter (principal); E66.9 Obesity, unspecified; Z68.34 Body mass index [BMI] 34.0-34.9, adult
CPT/HCPCS: 52352; 81001; 82365; 88300; 96361; 96374; 96375; 99199; 99285; J0690; C1769; J1100; J1171; J1885; J2250; J2405; J2704; J7120; Q9966